=== PATIENT | male | born 2000 | race Two or more races ===

== ENCOUNTER 2021-08-24 07:47 | Emergency (ER) | payer MEDICAID, OTHER ==
[~2021-08-24] VITALS: Ht 175.3 cm; Wt 59.0 kg
[2021-08-24 08:49] VITALS: BP 117/69
== END 2021-08-24 09:50 | disposition home or self-care (01) ==
LOC: ER 07:47
DX: J20.9 Acute bronchitis, unspecified (principal); F17.210 Nicotine dependence, cigarettes, uncomplicated

== ENCOUNTER 2022-07-01 23:28 | Emergency (ER) | payer MEDICAID ==
[~2022-07-01] VITALS: Ht 177.8 cm; Wt 59.0 kg
[2022-07-02 01:55] VITALS: BP 130/82
[2022-07-02] MEDS ORDERED: IBUPROFEN 800 MG TAB PO ONE ×2 (02:30→02:45)
[2022-07-02] MEDS ORDERED: IBUP800T27 PO (05:04)
[2022-07-03] MEDS ORDERED: BACL20TA PO (19:08)
== END 2022-07-02 05:38 | disposition home or self-care (01) ==
LOC: ER 23:38
DX: S50.311A Abrasion of right elbow, initial encounter (principal); S09.90XA Unspecified injury of head, initial encounter; S39.92XA Unspecified injury of lower back, initial encounter; S19.9XXA Unspecified injury of neck, initial encounter; F17.210 Nicotine dependence, cigarettes, uncomplicated; V89.2XXA Person injured in unspecified motor-vehicle accident, traffic, initial encounter; Y93.89 Activity, other specified; Y92.89 Other specified places as the place of occurrence of the external cause; Y99.8 Other external cause status
CPT/HCPCS: 70450; 72100; 72125; 73080; 73130

== ENCOUNTER 2022-07-03 11:16 | Emergency (ER) | payer MEDICAID ==
[~2022-07-03] VITALS: Ht 177.8 cm; Wt 58.3 kg
[~2022-07-03 11:16] MED LIST: IBUP800T27 PO
[2022-07-03 12:31] VITALS: BP 119/71
[2022-07-03] MEDS ORDERED: BACL20TA PO (19:08)
== END 2022-07-03 19:29 | disposition home or self-care (01) ==
LOC: ER 11:16
DX: S62.501A Fracture of unspecified phalanx of right thumb, initial encounter for closed fracture (principal); S93.401A Sprain of unspecified ligament of right ankle, initial encounter; F17.210 Nicotine dependence, cigarettes, uncomplicated; V89.2XXD Person injured in unspecified motor-vehicle accident, traffic, subsequent encounter; Y93.89 Activity, other specified; Y92.89 Other specified places as the place of occurrence of the external cause; Y99.8 Other external cause status
CPT/HCPCS: 73610; 82962